=== PATIENT | male | born 1945 | race Caucasian/White ===

== ENCOUNTER 2018-10-15 11:51 | Day surgery (SDC) | payer OTHER, BC ==
[2018-10-15] MEDS ORDERED: LIDOCAINE VISCOUS 2% ORAL/TOP 20 ML UNIT-DOSE CUP ONE (12:22)
[2018-10-15 12:32] VITALS: BP 118/63; PULSE 64; TEMP 97.9; BMI 28.8
--- NOTE | 2018-10-15 15:11 | EKG ---
Test Reason : Blood Pressure : / mmHG Vent. Rate : 067 BPM Atrial Rate : 067 BPM P-R Int : 170 ms QRS Dur : 098 ms QT Int : 418 ms P-R-T Axes : 046 -11 027 degrees QTc Int : 441 ms NORMAL SINUS RHYTHM WITH SINUS ARRHYTHMIA NORMAL ECG WHEN COMPARED WITH ECG OF 17-JAN-2010 13:27, NO SIGNIFICANT CHANGE WAS FOUND Confirmed by ANANTH RUIZ MD ([id number]) on 10/15/2018 3:11:22 PM Referred By: Ananth Ruiz Confirmed By:ANANTH RUIZ MD
== END 2018-10-15 13:20 | disposition home or self-care (01) ==
LOC: JASU-ENDO 11:51
PROVIDERS: ATTEND Internal Medicine Cardiovascular Disease
PROC: 5A2204Z Restoration of Cardiac Rhythm, Single (ICD-10-PCS; principal; 2018-10-15 12:30)
DX: Z53.8 Procedure and treatment not carried out for other reasons (principal)
CPT/HCPCS: 93005; 93010

== ENCOUNTER 2019-04-22 11:18 | Day surgery (SDC) | payer OTHER, BC | END 2019-04-22 13:50 | disposition home or self-care (01) | LOC: JASU-ENDO 11:18 ==